=== PATIENT | male | born 1985 | race Caucasian/White ===

== ENCOUNTER 2019-03-13 00:49 | Emergency (ER) | payer SELFPAY ==
[~2019-03-13] VITALS: Ht 172.7 cm; Wt 68.2 kg
[2019-03-13 00:50] VITALS: BP 130/89
== END 2019-03-13 01:19 | disposition left against medical advice (07) ==
LOC: EMS 00:52
DX: F41.9 Anxiety disorder, unspecified (principal); K59.00 Constipation, unspecified; Z53.21 Procedure and treatment not carried out due to patient leaving prior to being seen by health care provider